=== PATIENT | male | born 1950 | race Caucasian/White ===

== ENCOUNTER 2019-06-12 11:30 | Inpatient (IN) | payer MEDICARE, OTHER ==
[~2019-06-12] VITALS: Ht 182.9 cm; Wt 125.6 kg
[2019-06-12] MEDS ORDERED: MELATONIN 3 MG TABLET PO PRN (12:15)
[2019-06-12] MEDS ORDERED: DEXTROSE 50%-WATER 25 GM/50 ML SYRINGE IVP PRN (12:15)
[2019-06-12] MEDS ORDERED: ALBUTEROL SULFATE 2.5 MG/0.5 ML NEB SOLUTION NEB PRN (12:15)
[2019-06-12] MEDS ORDERED: ACETAMINOPHEN 325 MG TABLET PO PRN (12:15)
[2019-06-12 12:23] VITALS: BP 146/90
[2019-06-12] MEDS ORDERED: INFLUENZA VIRUS VACCINE QVS 2019-20 (3YR+)/PF 60 MCG/0.5 ML SYRINGE IM ONE (13:30)
[2019-06-12] MEDS ORDERED: PNEUMOCOCCAL VACCINE POLYVALENT 0.5 ML VIAL [PPSV23] IM ONE (13:30)
[2019-06-12 16:19] VITALS: BP 156/84
[2019-06-12] MEDS: HydrALAZINE HCL 50 MG TABLET PO SCH ×2 (16:35→21:17)
[2019-06-12] MEDS: DOCUSATE SODIUM 100 MG CAPSULE PO SCH ×2 (16:35→21:17)
[2019-06-12] MEDS: INSULIN LISPRO 100 UNITS/ML SQ PRN ×2 (18:50→21:25)
[2019-06-12] MEDS: POLYETHYLENE GLYCOL 3350 17 GM PACKET PO SCH (21:00)
[2019-06-12 21:09] LABS: GLUCOMETER DEV NAME(LOC) 2WR.1C; GLUCOSE,POINT OF CARE 155 MG/DL (70-110)
[2019-06-12] MEDS: SENNA 187 MG TABLET PO SCH (21:17)
[2019-06-12] MEDS: CARVEDILOL 3.125 MG TABLET PO SCH (21:17)
[2019-06-12] MEDS: TAMSULOSIN HCL 0.4 MG CAPSULE PO SCH (21:17)
[2019-06-12] MEDS: -LIDODERM PATCH NOTE- MISC SCH (21:17)
[2019-06-12] MEDS: LISINOPRIL 20 MG TABLET PO SCH (21:17)
[2019-06-12] MEDS: HEPARIN SODIUM,PORCINE 5,000 UNITS/ML VIAL SQ SCH (21:18)
[2019-06-12 22:32] LABS: GLUCOMETER DEV NAME(LOC) 2WR.2; GLUCOSE,POINT OF CARE 145 MG/DL (70-110)
[2019-06-13] VITALS: BP 134/80
[2019-06-13 05:42] LABS: GLUCOMETER DEV NAME(LOC) 2WR.2; GLUCOSE,POINT OF CARE 139 MG/DL (70-110)
[2019-06-13] MEDS: FAMOTIDINE 20 MG TABLET PO SCH (06:12)
[2019-06-13 07:35] LABS: BASOPHILS % (AUTO) 0.5 % (0.0-2.0); EOSINOPHILS % (AUTO) 2.6 % (1.0-6.0); HEMATOCRIT 36.4 % (41-53); HEMOGLOBIN 12.3 g/dL (13.5-17.5); LYMPHOCYTES # (AUTO) 1.5 K/uL (1.0-4.8); LYMPHOCYTES % (AUTO) 16.8 % (22.0-44.0); MEAN CORPUSCULAR HEMOGLOBIN 29.9 pg (26.0-34.0); MEAN CORPUSCULAR HGB CONC 33.7 G/dL (31.0-37.0); MEAN CORPUSCULAR VOLUME 89 fL (80-100); MONOCYTES # (AUTO) 0.8 K/uL (0.1-1.0); MONOCYTES % (AUTO) 8.8 % (2.0-9.0); NEUTROPHILS # (AUTO) 6.4 K/uL (1.8-7.7); NEUTROPHILS % (AUTO) 71.3 % (40.0-70.0); PLATELET COUNT (AUTO) 270 K/uL (150-450); RED CELL DISTRIBUTION WIDTH 13.9 % (11.5-14.5)
[2019-06-13 07:49] LABS: ALANINE AMINOTRANSFERASE 155 U/L (12-78); ALBUMIN 2.9 g/dL (3.4-5.0); ALKALINE PHOSPHATASE 91 U/L (46-116); ANION GAP 11 mmol/L (8-16); ASPARTATE AMINOTRANSFERASE 55 U/L (15-37); BILIRUBIN,TOTAL 0.5 mg/dL (0.1-1.0); CALCIUM, TOTAL 8.7 mg/dL (8.8-10.5); CARBON DIOXIDE 25 mmol/L (22-29); CHLORIDE 107 mmol/L (98-107); CREATININE 1.17 mg/dL (0.60-1.30); GLOMERULAR FILTR. RATE CALC > 60 mL/min (>60); GLUCOSE,RANDOM 136 mg/dL (70-110); POTASSIUM 3.9 mmol/L (3.5-5.1); SODIUM SERUM 143 mmol/L (136-145); TOTAL PROTEIN, SERUM 6.2 g/dL (6.4-8.2); UREA NITROGEN, BLOOD 27 mg/dL (7-18)
[2019-06-13 08:00] VITALS: BP 174/90
[2019-06-13] MEDS: ONDANSETRON HCL 4 MG TABLET PO PRN ×2 (09:08→17:43)
[2019-06-13] MEDS: CARVEDILOL 3.125 MG TABLET PO SCH ×2 (09:13→20:56)
[2019-06-13] MEDS: HydrALAZINE HCL 50 MG TABLET PO SCH ×3 (09:13→20:56)
[2019-06-13] MEDS: AmLODIPine BESYLATE 10 MG TABLET PO SCH (09:13)
[2019-06-13] MEDS: DOCUSATE SODIUM 100 MG CAPSULE PO SCH ×2 (09:14→20:56)
[2019-06-13] MEDS: HEPARIN SODIUM,PORCINE 5,000 UNITS/ML VIAL SQ SCH ×2 (09:14→20:58)
[2019-06-13] MEDS: LIDOCAINE 5% TRANSDERMAL PATCH TD SCH (09:15)
[2019-06-13] MEDS: POLYETHYLENE GLYCOL 3350 17 GM PACKET PO SCH ×2 (11:49→20:58)
[2019-06-13] MEDS: INSULIN LISPRO 100 UNITS/ML SQ PRN ×3 (13:12→21:23)
[2019-06-13 13:46] LABS: GLUCOMETER DEV NAME(LOC) 2WR.1C; GLUCOSE,POINT OF CARE 164 MG/DL (70-110)
[2019-06-13] MEDS: MECLIZINE HCL 25 MG TABLET PO SCH ×2 (16:56→20:56)
[2019-06-13 18:21] VITALS: BP 145/75
[2019-06-13 18:31] LABS: GLUCOMETER DEV NAME(LOC) 2WR.1C; GLUCOSE,POINT OF CARE 142 MG/DL (70-110)
[2019-06-13] MEDS: -LIDODERM PATCH NOTE- MISC SCH (20:42)
[2019-06-13 20:55] VITALS: BP 136/70
[2019-06-13] MEDS: TAMSULOSIN HCL 0.4 MG CAPSULE PO SCH (20:56)
[2019-06-13] MEDS: SENNA 187 MG TABLET PO SCH (20:56)
[2019-06-13] MEDS: LISINOPRIL 20 MG TABLET PO SCH (20:57)
[2019-06-13 21:24] LABS: GLUCOMETER DEV NAME(LOC) 2WR.2; GLUCOSE,POINT OF CARE 154 MG/DL (70-110)
[2019-06-14 02:29] VITALS: BP 137/78
[2019-06-14 05:30] VITALS: BP 165/91
[2019-06-14] MEDS: FAMOTIDINE 20 MG TABLET PO SCH (05:59)
[2019-06-14 06:14] LABS: GLUCOMETER DEV NAME(LOC) 2WR.2; GLUCOSE,POINT OF CARE 145 MG/DL (70-110)
[2019-06-14 06:51] LABS: BILIRUBIN,TOTAL 0.5 mg/dL (0.1-1.0); CALCIUM, TOTAL 8.8 mg/dL (8.8-10.5); CREATININE 1.3 mg/dL (0.60-1.30); TOTAL PROTEIN, SERUM 6.4 g/dL (6.4-8.2)
[2019-06-14 07:00] VITALS: BP 150/77
[2019-06-14] MEDS: DOCUSATE SODIUM 100 MG CAPSULE PO SCH ×2 (08:01→21:06)
[2019-06-14] MEDS: CARVEDILOL 3.125 MG TABLET PO SCH ×2 (08:01→21:06)
[2019-06-14] MEDS: HydrALAZINE HCL 50 MG TABLET PO SCH ×3 (08:01→21:06)
[2019-06-14] MEDS: MECLIZINE HCL 25 MG TABLET PO SCH ×3 (08:01→21:06)
[2019-06-14] MEDS: AmLODIPine BESYLATE 10 MG TABLET PO SCH (08:01)
[2019-06-14] MEDS: POLYETHYLENE GLYCOL 3350 17 GM PACKET PO SCH ×2 (08:02→21:00)
[2019-06-14] MEDS: LIDOCAINE 5% TRANSDERMAL PATCH TD SCH (08:02)
[2019-06-14] MEDS: HEPARIN SODIUM,PORCINE 5,000 UNITS/ML VIAL SQ SCH ×2 (08:02→21:07)
[2019-06-14] MEDS: INSULIN LISPRO 100 UNITS/ML SQ PRN ×2 (12:27→21:15)
[2019-06-14 12:46] LABS: GLUCOMETER DEV NAME(LOC) 2WR.1C; GLUCOSE,POINT OF CARE 178 MG/DL (70-110)
[2019-06-14 17:00] VITALS: BP 165/91
[2019-06-14] MEDS: LISINOPRIL 20 MG TABLET PO SCH (21:00)
[2019-06-14 21:04] VITALS: BP 106/57
[2019-06-14] MEDS: TAMSULOSIN HCL 0.4 MG CAPSULE PO SCH (21:06)
[2019-06-14] MEDS: SENNA 187 MG TABLET PO SCH (21:06)
[2019-06-14] MEDS: -LIDODERM PATCH NOTE- MISC SCH (21:07)
[2019-06-14 21:42] LABS: GLUCOMETER DEV NAME(LOC) 2WR.2; GLUCOSE,POINT OF CARE 134 MG/DL (70-110)
[2019-06-15] VITALS: BP 125/53
[2019-06-15 05:59] LABS: GLUCOMETER DEV NAME(LOC) 2WR.1C; GLUCOSE,POINT OF CARE 167 MG/DL (70-110)
[2019-06-15] MEDS: FAMOTIDINE 20 MG TABLET PO SCH (06:12)
[2019-06-15 06:20] LABS: GLUCOMETER DEV NAME(LOC) 2WR.2; GLUCOSE,POINT OF CARE 130 MG/DL (70-110)
[2019-06-15 07:45] VITALS: BP 146/74
[2019-06-15] MEDS: AmLODIPine BESYLATE 10 MG TABLET PO SCH (08:29)
[2019-06-15] MEDS: MECLIZINE HCL 25 MG TABLET PO SCH ×3 (08:29→20:37)
[2019-06-15] MEDS: HydrALAZINE HCL 50 MG TABLET PO SCH ×3 (08:29→20:38)
[2019-06-15] MEDS: CARVEDILOL 3.125 MG TABLET PO SCH ×2 (08:30→20:37)
[2019-06-15] MEDS: POLYETHYLENE GLYCOL 3350 17 GM PACKET PO SCH ×2 (08:30→20:38)
[2019-06-15] MEDS: DOCUSATE SODIUM 100 MG CAPSULE PO SCH ×2 (08:30→20:37)
[2019-06-15] MEDS: LIDOCAINE 5% TRANSDERMAL PATCH TD SCH ×2 (08:31→20:50)
[2019-06-15] MEDS: SCOPOLAMINE HYDROBROMIDE 1 MG/72 HOUR PATCH TD SCH (08:31)
[2019-06-15] MEDS: HEPARIN SODIUM,PORCINE 5,000 UNITS/ML VIAL SQ SCH ×2 (08:31→20:39)
[2019-06-15 12:46] LABS: GLUCOMETER DEV NAME(LOC) 2WR.2; GLUCOSE,POINT OF CARE 129 MG/DL (70-110)
[2019-06-15 15:30] VITALS: BP 127/80
[2019-06-15 16:55] VITALS: BP 155/92
[2019-06-15 17:49] LABS: GLUCOMETER DEV NAME(LOC) 2WR.1C; GLUCOSE,POINT OF CARE 121 MG/DL (70-110)
[2019-06-15 20:36] VITALS: BP 101/57
[2019-06-15] MEDS: SENNA 187 MG TABLET PO SCH (20:37)
[2019-06-15] MEDS: TAMSULOSIN HCL 0.4 MG CAPSULE PO SCH (20:37)
[2019-06-15] MEDS: LISINOPRIL 20 MG TABLET PO SCH (20:38)
[2019-06-15] MEDS: INSULIN LISPRO 100 UNITS/ML SQ PRN (20:58)
[2019-06-15 21:42] LABS: GLUCOMETER DEV NAME(LOC) 2WR.1C; GLUCOSE,POINT OF CARE 153 MG/DL (70-110)
[2019-06-16 00:35] VITALS: BP 135/93
[2019-06-16] MEDS: FAMOTIDINE 20 MG TABLET PO SCH (05:58)
[2019-06-16 06:42] LABS: GLUCOMETER DEV NAME(LOC) 2WR.1C; GLUCOSE,POINT OF CARE 127 MG/DL (70-110)
[2019-06-16 06:43] LABS: ALBUMIN 3.3 g/dL (3.4-5.0); BILIRUBIN,TOTAL 0.5 mg/dL (0.1-1.0); CALCIUM, TOTAL 9.3 mg/dL (8.8-10.5); CREATININE 1.39 mg/dL (0.60-1.30); POTASSIUM 4.2 mmol/L (3.5-5.1)
[2019-06-16] MEDS: MECLIZINE HCL 25 MG TABLET PO SCH ×3 (08:20→20:59)
[2019-06-16] MEDS: CARVEDILOL 3.125 MG TABLET PO SCH ×2 (08:20→20:59)
[2019-06-16] MEDS: POLYETHYLENE GLYCOL 3350 17 GM PACKET PO SCH ×2 (08:20→21:00)
[2019-06-16] MEDS: DOCUSATE SODIUM 100 MG CAPSULE PO SCH ×2 (08:21→21:00)
[2019-06-16] MEDS: ONDANSETRON HCL 4 MG TABLET PO PRN (08:21)
[2019-06-16] MEDS: HydrALAZINE HCL 50 MG TABLET PO SCH ×3 (08:21→20:59)
[2019-06-16] MEDS: HEPARIN SODIUM,PORCINE 5,000 UNITS/ML VIAL SQ SCH ×2 (08:21→20:59)
[2019-06-16] MEDS: AmLODIPine BESYLATE 10 MG TABLET PO SCH (08:21)
[2019-06-16 09:00] VITALS: BP 143/93
[2019-06-16] MEDS: -LIDODERM PATCH NOTE- MISC SCH (09:00)
[2019-06-16 13:18] LABS: GLUCOMETER DEV NAME(LOC) 2WR.2; GLUCOSE,POINT OF CARE 130 MG/DL (70-110)
[2019-06-16] MEDS ORDERED: ONDANSETRON HCL 4 MG TABLET PO ONE (13:45)
[2019-06-16 15:23] VITALS: BP 142/79
[2019-06-16 19:55] LABS: GLUCOMETER DEV NAME(LOC) 2WR.2; GLUCOSE,POINT OF CARE 146 MG/DL (70-110)
[2019-06-16] MEDS: TAMSULOSIN HCL 0.4 MG CAPSULE PO SCH (20:59)
[2019-06-16] MEDS: LIDOCAINE 5% TRANSDERMAL PATCH TD SCH (20:59)
[2019-06-16] MEDS: LISINOPRIL 20 MG TABLET PO SCH (20:59)
[2019-06-16] MEDS: SENNA 187 MG TABLET PO SCH (21:00)
[2019-06-16] MEDS: INSULIN LISPRO 100 UNITS/ML SQ PRN (21:03)
[2019-06-16 21:30] LABS: GLUCOMETER DEV NAME(LOC) 2WR.2; GLUCOSE,POINT OF CARE 147 MG/DL (70-110)
[2019-06-16 23:18] VITALS: BP 110/65
[2019-06-17] MEDS: FAMOTIDINE 20 MG TABLET PO SCH (06:03)
[2019-06-17 06:34] LABS: GLUCOMETER DEV NAME(LOC) 2WR.2; GLUCOSE,POINT OF CARE 113 MG/DL (70-110)
[2019-06-17 07:30] VITALS: BP 137/58
[2019-06-17] MEDS: -LIDODERM PATCH NOTE- MISC SCH (07:55)
[2019-06-17] MEDS: POLYETHYLENE GLYCOL 3350 17 GM PACKET PO SCH ×2 (07:56→21:08)
[2019-06-17] MEDS: MECLIZINE HCL 25 MG TABLET PO SCH ×3 (07:56→21:08)
[2019-06-17] MEDS: AmLODIPine BESYLATE 10 MG TABLET PO SCH (07:56)
[2019-06-17] MEDS: HydrALAZINE HCL 50 MG TABLET PO SCH ×3 (07:56→21:08)
[2019-06-17] MEDS: HEPARIN SODIUM,PORCINE 5,000 UNITS/ML VIAL SQ SCH ×2 (07:57→21:07)
[2019-06-17] MEDS: CARVEDILOL 3.125 MG TABLET PO SCH ×2 (07:57→21:08)
[2019-06-17] MEDS: DOCUSATE SODIUM 100 MG CAPSULE PO SCH ×2 (07:57→21:08)
[2019-06-17] MEDS: ONDANSETRON HCL 4 MG TABLET PO PRN (08:04)
[2019-06-17 12:47] LABS: GLUCOMETER DEV NAME(LOC) 2WR.2; GLUCOSE,POINT OF CARE 146 MG/DL (70-110)
[2019-06-17] MEDS: INSULIN LISPRO 100 UNITS/ML SQ PRN ×2 (12:47→21:04)
[2019-06-17 16:00] VITALS: BP 130/78
[2019-06-17] MEDS: LIDOCAINE 5% TRANSDERMAL PATCH TD SCH (21:00)
[2019-06-17] MEDS: TAMSULOSIN HCL 0.4 MG CAPSULE PO SCH (21:08)
[2019-06-17] MEDS: SENNA 187 MG TABLET PO SCH (21:08)
[2019-06-17] MEDS: LISINOPRIL 20 MG TABLET PO SCH (21:08)
[2019-06-17 21:34] LABS: GLUCOMETER DEV NAME(LOC) 2WR.1C; GLUCOSE,POINT OF CARE 158 MG/DL (70-110)
[2019-06-17 21:34] LABS: GLUCOMETER DEV NAME(LOC) 2WR.1C; GLUCOSE,POINT OF CARE 102 MG/DL (70-110)
[2019-06-17 23:44] VITALS: BP 105/57
[2019-06-18] MEDS: FAMOTIDINE 20 MG TABLET PO SCH (06:11)
[2019-06-18 06:19] LABS: GLUCOMETER DEV NAME(LOC) 2WR.1C; GLUCOSE,POINT OF CARE 121 MG/DL (70-110)
[2019-06-18 07:20] LABS: BILIRUBIN,TOTAL 0.4 mg/dL (0.1-1.0); CALCIUM, TOTAL 8.8 mg/dL (8.8-10.5); CREATININE 1.46 mg/dL (0.60-1.30); POTASSIUM 4.3 mmol/L (3.5-5.1); TOTAL PROTEIN, SERUM 6.5 g/dL (6.4-8.2)
[2019-06-18] MEDS: ONDANSETRON HCL 4 MG TABLET PO PRN (08:31)
[2019-06-18] MEDS: -LIDODERM PATCH NOTE- MISC SCH (09:00)
[2019-06-18] MEDS: POLYETHYLENE GLYCOL 3350 17 GM PACKET PO SCH ×2 (09:29→20:53)
[2019-06-18] MEDS: HydrALAZINE HCL 50 MG TABLET PO SCH ×3 (09:29→20:53)
[2019-06-18 09:30] VITALS: BP 117/69
[2019-06-18] MEDS: HEPARIN SODIUM,PORCINE 5,000 UNITS/ML VIAL SQ SCH (09:30)
[2019-06-18] MEDS: DOCUSATE SODIUM 100 MG CAPSULE PO SCH ×2 (09:30→20:53)
[2019-06-18] MEDS: MECLIZINE HCL 25 MG TABLET PO SCH ×3 (09:30→20:53)
[2019-06-18] MEDS: AmLODIPine BESYLATE 10 MG TABLET PO SCH (09:30)
[2019-06-18] MEDS: SCOPOLAMINE HYDROBROMIDE 1 MG/72 HOUR PATCH TD SCH (09:30)
[2019-06-18] MEDS: CARVEDILOL 3.125 MG TABLET PO SCH ×2 (09:30→20:53)
[2019-06-18] MEDS ORDERED: -LIDODERM PATCH NOTE- MISC PRN (09:45)
[2019-06-18] MEDS ORDERED: LIDOCAINE 5% TRANSDERMAL PATCH TD PRN (09:45)
[2019-06-18] MEDS: MetFORMIN HCL 500 MG TABLET PO SCH (16:35)
[2019-06-18 17:59] LABS: GLUCOMETER DEV NAME(LOC) 2WR.2; GLUCOSE,POINT OF CARE 107 MG/DL (70-110)
[2019-06-18 18:41] VITALS: BP 122/68
[2019-06-18 18:50] LABS: GLUCOMETER DEV NAME(LOC) 2WR.1C; GLUCOSE,POINT OF CARE 115 MG/DL (70-110)
[2019-06-18] MEDS: TAMSULOSIN HCL 0.4 MG CAPSULE PO SCH (20:53)
[2019-06-18] MEDS: SENNA 187 MG TABLET PO SCH (20:53)
[2019-06-18] MEDS: LISINOPRIL 20 MG TABLET PO SCH (20:53)
[2019-06-19 04:05] VITALS: BP 121/69
[2019-06-19 05:21] LABS: GLUCOMETER DEV NAME(LOC) 2WR.1C; GLUCOSE,POINT OF CARE 100 MG/DL (70-110)
[2019-06-19] MEDS: FAMOTIDINE 20 MG TABLET PO SCH (06:15)
[2019-06-19 06:32] LABS: GLUCOMETER DEV NAME(LOC) 2WR.2; GLUCOSE,POINT OF CARE 115 MG/DL (70-110)
[2019-06-19] MEDS: POLYETHYLENE GLYCOL 3350 17 GM PACKET PO SCH ×2 (08:28→21:02)
[2019-06-19] MEDS: DOCUSATE SODIUM 100 MG CAPSULE PO SCH ×2 (08:29→21:01)
[2019-06-19] MEDS: HydrALAZINE HCL 50 MG TABLET PO SCH ×3 (08:29→21:01)
[2019-06-19] MEDS: MetFORMIN HCL 500 MG TABLET PO SCH ×2 (08:29→17:23)
[2019-06-19] MEDS: MECLIZINE HCL 25 MG TABLET PO SCH ×3 (08:29→21:01)
[2019-06-19 08:30] VITALS: BP 141/72
[2019-06-19] MEDS: AmLODIPine BESYLATE 10 MG TABLET PO SCH (08:30)
[2019-06-19] MEDS: CARVEDILOL 3.125 MG TABLET PO SCH ×2 (08:30→21:01)
[2019-06-19] MEDS ORDERED: ERGOCALCIFEROL (VIT D2) 50,000 UNITS CAPSULE PO SCH (09:00)
[2019-06-19] MEDS ORDERED: ENOXAPARIN SODIUM 40 MG/0.4 ML PF SYRINGE SQ SCH (09:00)
[2019-06-19] MEDS: ONDANSETRON HCL 4 MG TABLET PO PRN (12:21)
[2019-06-19 12:49] LABS: GLUCOMETER DEV NAME(LOC) 2WR.2; GLUCOSE,POINT OF CARE 94 MG/DL (70-110)
[2019-06-19] MEDS ORDERED: METF-446 PO (13:36)
[2019-06-19] MEDS ORDERED: NITR0.4T50 SL (13:36)
[2019-06-19] MEDS ORDERED: HYDR-4173 PO (13:36)
[2019-06-19] MEDS ORDERED: HYDR25TA PO (13:36)
[2019-06-19] MEDS ORDERED: ATOR40TA71 PO (13:36)
[2019-06-19] MEDS ORDERED: ASPI-556 PO (13:38)
[2019-06-19] MEDS ORDERED: INSNPH SQ ×2 (13:38→13:39)
[2019-06-19] MEDS ORDERED: ATEN100T PO (13:38)
[2019-06-19] MEDS ORDERED: INSU100V3 SQ ×3 (13:42→13:43)
[2019-06-19 17:13] LABS: GLUCOMETER DEV NAME(LOC) 2WR.2; GLUCOSE,POINT OF CARE 108 MG/DL (70-110)
[2019-06-19] MEDS: TAMSULOSIN HCL 0.4 MG CAPSULE PO SCH (21:01)
[2019-06-19] MEDS: SENNA 187 MG TABLET PO SCH (21:01)
[2019-06-19] MEDS: LISINOPRIL 20 MG TABLET PO SCH (21:01)
[2019-06-19 21:14] VITALS: BP 135/83
[2019-06-19 23:52] LABS: GLUCOMETER DEV NAME(LOC) 2WR.2; GLUCOSE,POINT OF CARE 114 MG/DL (70-110)
[2019-06-20 00:19] VITALS: BP 105/62
[2019-06-20] MEDS: FAMOTIDINE 20 MG TABLET PO SCH (06:19)
[2019-06-20 06:25] LABS: GLUCOMETER DEV NAME(LOC) 2WR.2; GLUCOSE,POINT OF CARE 105 MG/DL (70-110)
[2019-06-20 07:10] VITALS: BP 119/66
[2019-06-20] MEDS: MetFORMIN HCL 500 MG TABLET PO SCH ×2 (08:14→16:59)
[2019-06-20] MEDS: HydrALAZINE HCL 50 MG TABLET PO SCH ×3 (08:33→20:20)
[2019-06-20] MEDS: AmLODIPine BESYLATE 10 MG TABLET PO SCH (08:33)
[2019-06-20] MEDS: DOCUSATE SODIUM 100 MG CAPSULE PO SCH ×2 (08:33→20:20)
[2019-06-20] MEDS: MECLIZINE HCL 25 MG TABLET PO SCH ×3 (08:33→20:19)
[2019-06-20] MEDS: POLYETHYLENE GLYCOL 3350 17 GM PACKET PO SCH ×2 (08:33→20:20)
[2019-06-20] MEDS: CARVEDILOL 3.125 MG TABLET PO SCH ×2 (08:33→20:20)
[2019-06-20] MEDS: ENOXAPARIN SODIUM 30 MG/0.3 ML PF SYRINGE SQ SCH (08:33)
[2019-06-20] MEDS ORDERED: MAGNESIUM HYDROXIDE SUSPENSION 30 ML UDCUP PO PRN (11:30)
[2019-06-20 12:55] LABS: GLUCOMETER DEV NAME(LOC) 2WR.2; GLUCOSE,POINT OF CARE 91 MG/DL (70-110)
[2019-06-20] MEDS: ONDANSETRON HCL 4 MG TABLET PO PRN ×2 (13:06→20:37)
[2019-06-20 15:20] VITALS: BP 118/53
[2019-06-20 19:36] LABS: GLUCOMETER DEV NAME(LOC) 2WR.2; GLUCOSE,POINT OF CARE 107 MG/DL (70-110)
[2019-06-20 20:14] VITALS: BP 97/56
[2019-06-20] MEDS: TAMSULOSIN HCL 0.4 MG CAPSULE PO SCH (20:19)
[2019-06-20] MEDS: SENNA 187 MG TABLET PO SCH (20:19)
[2019-06-20] MEDS: LISINOPRIL 20 MG TABLET PO SCH (20:21)
[2019-06-20 22:30] LABS: GLUCOMETER DEV NAME(LOC) 2WR.1C; GLUCOSE,POINT OF CARE 109 MG/DL (70-110)
[2019-06-21] VITALS: BP 117/70
[2019-06-21] MEDS: FAMOTIDINE 20 MG TABLET PO SCH (06:01)
[2019-06-21 06:28] LABS: GLUCOMETER DEV NAME(LOC) 2WR.2; GLUCOSE,POINT OF CARE 115 MG/DL (70-110)
[2019-06-21] MEDS: MetFORMIN HCL 500 MG TABLET PO SCH ×2 (07:45→16:31)
[2019-06-21] MEDS: ENOXAPARIN SODIUM 30 MG/0.3 ML PF SYRINGE SQ SCH (08:21)
[2019-06-21] MEDS: AmLODIPine BESYLATE 10 MG TABLET PO SCH (08:22)
[2019-06-21] MEDS: POLYETHYLENE GLYCOL 3350 17 GM PACKET PO SCH ×2 (08:22→20:06)
[2019-06-21] MEDS: DOCUSATE SODIUM 100 MG CAPSULE PO SCH ×2 (08:22→20:05)
[2019-06-21] MEDS: MECLIZINE HCL 25 MG TABLET PO SCH ×3 (08:22→20:05)
[2019-06-21] MEDS: SCOPOLAMINE HYDROBROMIDE 1 MG/72 HOUR PATCH TD SCH (08:23)
[2019-06-21] MEDS: CARVEDILOL 3.125 MG TABLET PO SCH ×2 (08:23→20:06)
[2019-06-21] MEDS: HydrALAZINE HCL 50 MG TABLET PO SCH ×3 (08:23→20:06)
[2019-06-21] MEDS: ONDANSETRON HCL 4 MG TABLET PO PRN (10:03)
[2019-06-21 10:20] VITALS: BP 109/65
[2019-06-21 15:00] VITALS: BP 128/63
[2019-06-21 17:29] LABS: GLUCOMETER DEV NAME(LOC) 2WR.1C; GLUCOSE,POINT OF CARE 106 MG/DL (70-110)
[2019-06-21 17:55] LABS: GLUCOMETER DEV NAME(LOC) 2WR.2; GLUCOSE,POINT OF CARE 126 MG/DL (70-110)
[2019-06-21 20:00] VITALS: BP 127/71
[2019-06-21] MEDS: TAMSULOSIN HCL 0.4 MG CAPSULE PO SCH (20:05)
[2019-06-21] MEDS: SENNA 187 MG TABLET PO SCH (20:06)
[2019-06-21] MEDS: LISINOPRIL 20 MG TABLET PO SCH (20:06)
[2019-06-21 21:37] LABS: GLUCOMETER DEV NAME(LOC) 2WR.1C; GLUCOSE,POINT OF CARE 108 MG/DL (70-110)
[2019-06-22 01:00] VITALS: BP 126/68
[2019-06-22] MEDS: FAMOTIDINE 20 MG TABLET PO SCH (06:05)
[2019-06-22 06:31] LABS: GLUCOMETER DEV NAME(LOC) 2WR.2; GLUCOSE,POINT OF CARE 100 MG/DL (70-110)
[2019-06-22 08:30] VITALS: BP 134/76
[2019-06-22] MEDS: MetFORMIN HCL 500 MG TABLET PO SCH ×2 (08:50→16:44)
[2019-06-22] MEDS: DOCUSATE SODIUM 100 MG CAPSULE PO SCH ×2 (08:50→21:02)
[2019-06-22] MEDS: ENOXAPARIN SODIUM 30 MG/0.3 ML PF SYRINGE SQ SCH (08:50)
[2019-06-22] MEDS: AmLODIPine BESYLATE 10 MG TABLET PO SCH (08:51)
[2019-06-22] MEDS: MECLIZINE HCL 25 MG TABLET PO SCH ×3 (08:51→21:02)
[2019-06-22] MEDS: POLYETHYLENE GLYCOL 3350 17 GM PACKET PO SCH ×2 (08:51→21:00)
[2019-06-22] MEDS: CARVEDILOL 3.125 MG TABLET PO SCH ×2 (08:51→21:02)
[2019-06-22] MEDS: HydrALAZINE HCL 50 MG TABLET PO SCH ×3 (08:51→21:02)
[2019-06-22 13:39] LABS: GLUCOMETER DEV NAME(LOC) 2WR.2; GLUCOSE,POINT OF CARE 90 MG/DL (70-110)
[2019-06-22 17:23] VITALS: BP 126/72
[2019-06-22] MEDS: SENNA 187 MG TABLET PO SCH (21:02)
[2019-06-22] MEDS: TAMSULOSIN HCL 0.4 MG CAPSULE PO SCH (21:02)
[2019-06-22] MEDS: LISINOPRIL 20 MG TABLET PO SCH (21:02)
[2019-06-22 22:23] LABS: GLUCOMETER DEV NAME(LOC) 2WR.2; GLUCOSE,POINT OF CARE 118 MG/DL (70-110)
[2019-06-23] VITALS: BP 130/74
[2019-06-23 04:22] LABS: GLUCOMETER DEV NAME(LOC) 2WR.1C; GLUCOSE,POINT OF CARE 87 MG/DL (70-110)
[2019-06-23] MEDS: FAMOTIDINE 20 MG TABLET PO SCH (06:29)
[2019-06-23 06:45] LABS: GLUCOMETER DEV NAME(LOC) 2WR.2; GLUCOSE,POINT OF CARE 115 MG/DL (70-110)
[2019-06-23 07:32] VITALS: BP 132/69
[2019-06-23] MEDS: ONDANSETRON HCL 4 MG TABLET PO PRN (07:41)
[2019-06-23] MEDS: MetFORMIN HCL 500 MG TABLET PO SCH ×2 (07:47→16:46)
[2019-06-23] MEDS: POLYETHYLENE GLYCOL 3350 17 GM PACKET PO SCH ×2 (09:00→20:15)
[2019-06-23] MEDS: HydrALAZINE HCL 50 MG TABLET PO SCH ×3 (09:30→20:14)
[2019-06-23] MEDS: CARVEDILOL 3.125 MG TABLET PO SCH ×2 (09:30→20:14)
[2019-06-23] MEDS: AmLODIPine BESYLATE 10 MG TABLET PO SCH (09:30)
[2019-06-23] MEDS: DOCUSATE SODIUM 100 MG CAPSULE PO SCH ×2 (09:30→20:14)
[2019-06-23] MEDS: MECLIZINE HCL 25 MG TABLET PO SCH ×3 (09:30→20:14)
[2019-06-23] MEDS: ENOXAPARIN SODIUM 30 MG/0.3 ML PF SYRINGE SQ SCH (09:30)
[2019-06-23 12:39] LABS: GLUCOMETER DEV NAME(LOC) 2WR.2; GLUCOSE,POINT OF CARE 111 MG/DL (70-110)
[2019-06-23 16:39] VITALS: BP 144/69
[2019-06-23 18:55] LABS: GLUCOMETER DEV NAME(LOC) 2WR.2; GLUCOSE,POINT OF CARE 124 MG/DL (70-110)
[2019-06-23 20:11] VITALS: BP 110/65
[2019-06-23] MEDS: LISINOPRIL 20 MG TABLET PO SCH (20:14)
[2019-06-23] MEDS: SENNA 187 MG TABLET PO SCH (20:14)
[2019-06-23] MEDS: TAMSULOSIN HCL 0.4 MG CAPSULE PO SCH (20:14)
[2019-06-23 21:47] LABS: GLUCOMETER DEV NAME(LOC) 2WR.2; GLUCOSE,POINT OF CARE 118 MG/DL (70-110)
[2019-06-23 23:53] VITALS: BP 108/56
[2019-06-24] MEDS: FAMOTIDINE 20 MG TABLET PO SCH (06:36)
[2019-06-24 06:42] LABS: GLUCOMETER DEV NAME(LOC) 2WR.1C; GLUCOSE,POINT OF CARE 107 MG/DL (70-110)
[2019-06-24 07:30] VITALS: BP 138/88
[2019-06-24] MEDS: POLYETHYLENE GLYCOL 3350 17 GM PACKET PO SCH (08:50)
[2019-06-24] MEDS: ENOXAPARIN SODIUM 30 MG/0.3 ML PF SYRINGE SQ SCH (08:50)
[2019-06-24] MEDS: HydrALAZINE HCL 50 MG TABLET PO SCH (08:51)
[2019-06-24] MEDS: SCOPOLAMINE HYDROBROMIDE 1 MG/72 HOUR PATCH TD SCH (08:51)
[2019-06-24] MEDS: DOCUSATE SODIUM 100 MG CAPSULE PO SCH (08:51)
[2019-06-24] MEDS: CARVEDILOL 3.125 MG TABLET PO SCH (08:52)
[2019-06-24] MEDS: AmLODIPine BESYLATE 10 MG TABLET PO SCH (08:53)
[2019-06-24] MEDS: MetFORMIN HCL 500 MG TABLET PO SCH (08:53)
[2019-06-24] MEDS: MECLIZINE HCL 25 MG TABLET PO SCH (08:53)
[2019-06-24 09:03] LABS: ALBUMIN 2.9 g/dL (3.4-5.0); BILIRUBIN,TOTAL 0.5 mg/dL (0.1-1.0); CREATININE 1.68 mg/dL (0.60-1.30); POTASSIUM 4.4 mmol/L (3.5-5.1); TOTAL PROTEIN, SERUM 6.2 g/dL (6.4-8.2)
[2019-06-24 13:46] LABS: GLUCOMETER DEV NAME(LOC) 2WR.2; GLUCOSE,POINT OF CARE 128 MG/DL (70-110)
== END 2019-06-24 13:45 | DRG 86 ==
LOC: 2WR 11:30 → UNDOADMIN 11:38 → 2WR 11:38
PROVIDERS: ADMIT Physical Medicine & Rehabilitation
DX: S06.5X0A Traumatic subdural hemorrhage without loss of consciousness, initial encounter (principal); G81.94 Hemiplegia, unspecified affecting left nondominant side; E11.9 Type 2 diabetes mellitus without complications; J45.909 Unspecified asthma, uncomplicated; I10 Essential (primary) hypertension; Z91.81 History of falling; Z79.899 Other long term (current) drug therapy
CPT/HCPCS: 80074; 87081; 90686; 90732; 92507; 92508; 92523; 97110; 97112; 97116; 97150; 97163; 97166; 97530; 97535; 99366; J1644; J1650; Q0162